=== PATIENT | female | born 1995 | race Caucasian/White ===

== ENCOUNTER 2021-12-22 09:23 | Outpatient (CLI) | payer BC ==
[2021-12-22] MEDS ORDERED: Lidocaine 1% PF 5 ML VIAL ONE (10:15)
[2021-12-22] MEDS ORDERED: EPINEPHrine 1 MG/ML AMP ONE (10:15)
[2021-12-22] MEDS ORDERED: Gadobenate Dimeglumine 529 MG/1 ML (20ML VIAL) ONE (10:15)
[2021-12-22] MEDS ORDERED: Iopamidol 300 61% 50 ML VIAL FS ONE (10:15)
== END 2021-12-22 09:24 | disposition home or self-care (01) ==
LOC: RAD 09:23
PROVIDERS: ATTEND Orthopaedic Surgery
DX: M24.412 Recurrent dislocation, left shoulder (principal); R60.0 Localized edema; M85.611 Other cyst of bone, right shoulder; M25.811 Other specified joint disorders, right shoulder
CPT/HCPCS: 23350; A9577; J0171; Q9967